=== PATIENT | male | born 1945 | race Hispanic/Latino ===

== ENCOUNTER → 2017-12-21 | Day surgery (SDC) | payer MEDICARE ==
[~2017-12-21] MED LIST: COZAAR50 MG PO; FENTANYL CITRATE/PF 100MCG/2 ML INJ ONE; MIDAZOLAM HCL 2 MG/2 ML VIAL ONE; OR PHACO EYE KIT ONE; PREOP PHACO EYE KIT ONE
== END | disposition home or self-care (01) ==
LOC: OR 11:43
PROVIDERS: ATTEND Ophthalmology
DX: H25.12 Age-related nuclear cataract, left eye (principal); I10 Essential (primary) hypertension
CPT/HCPCS: 66984; J2250

== ENCOUNTER → 2018-01-11 | Day surgery (SDC) | payer MEDICARE | END | disposition home or self-care (01) | LOC: OR 11:11 | PROVIDERS: ATTEND Ophthalmology | DX: H25.11 Age-related nuclear cataract, right eye (principal); I10 Essential (primary) hypertension | CPT/HCPCS: 66984; J2250; V2632 ==